=== PATIENT | female | born 1960 | race Caucasian/White ===

== ENCOUNTER 2018-07-09 13:46 | Inpatient (IN) | payer MEDICARE ==
[2018-07-09 14:33] LABS: #Basophils 0.1 thou/uL (0.0-0.2); #Eosinphils 0.4 thou/uL (0.0-0.7); #Lymphocytes 1.8 thou/uL (1.20-3.40); #Monocytes 0.6 thou/uL (0.11-0.59); #Neutrophils 5.6 thou/uL (1.40-6.50); %Basophils 0.8 % (0.0-1.0); %Eosinophils 4.5 % (0.0-10.0); %Lymphocytes 21.1 % (21.0-51.0); %Monocytes 6.6 % (0.0-10.0); Hemoglobin 11.5 g/dL (12.0-16.0); Mean Corpuscular HGB CONC 32.6 g/dL (32.0-36.0); Mean Corpuscular Hemoglobin 31.7 pg (27.0-31.0); Mean Corpuscular Volume 97.4 fL (78.0-98.0); Mean Platelet Volume 7.3 fL (7.4-10.4); Platelet Count 334 thou/uL (130-400); RBC Distribution Width 13.4 % (11.5-14.5); Red Blood Cell (RBC) Count 3.63 mill/uL (4.20-5.40); White Blood Cell (WBC) Count 8.4 thou/uL (4.8-10.8)
[2018-07-09 14:50] LABS: ALT (SGPT) 17 U/L (8-55); AST (SGOT) 18 U/L (5-34); Albumin 4.3 g/dL (3.5-5.0); Alkaline Phosphatase 77 U/L (40-150); Anion Gap 15 mmol/L (10-20); BUN (Urea Nitrogen) 33 mg/dL (9.8-20.1); Bilirubin, Total 0.3 mg/dL (0.2-1.2); Calc. Creatinine Clearance 0 mL/min (70-130); Calcium 10.7 mg/dL (7.8-10.44); Carbon Dioxide 27 mmol/L (22-29); Chloride 108 mmol/L (98-107); Estimated GFR-MDRD 45; Glucose 207 mg/dL (70-105); Potassium 5.4 mmol/L (3.5-5.1); Protein, Total 8.3 g/dL (6.0-8.3); Sodium 145 mmol/L (136-145)
[2018-07-09 15:02] LABS: Bilirubin Negative (Negative); Blood, Urine Negative (Negative); Clarity CLEAR (Clear); Glucose, Urine (Dipstick) 100 mg/dL (Negative); Leukocyte Negative (Negative); Nitrite Negative (Negative); Protein, Urine (Dipstick) 30 mg/dL (Neg-Trace); Specific Gravity, Urine 1.014 (1.002-1.036); Urobilinogen 0.2 mg/dL (0.2-1.0); pH, Urine 5.5 (5.0-9.0)
[2018-07-09 15:03] LABS: Bacteria/HPF None Seen HPF (None Seen); Hyaline Casts/LPF 0-3 HYALINE CAST LPF (0-3 Hyaline); Pathc Cast-AUWi Flag 0.43 (0-2.49); RBC/HPF 0-3 HPF (0-3); WBC/HPF 0-3 HPF (0-3)
--- NOTE | 2018-07-09 16:14 | RAD ---
THREE VIEWS RIGHT FOOT: Date: 07-09-18 History: Right foot pain with redness and swelling. Symptoms have been present for two weeks. Patient has diabetes. Comparison: None available. FINDINGS: There is mild deformity involving the proximal phalanx of the right small toe which is probably devel opmental in origin versus a remote healed fracture. There is no evidence of an acute fracture or disl ocation. There is a lucency present at the lateral aspect base of the distal phalanx of the great toe , but this appears corticated and may represent a more remote avulsion injury. Correlation with point tenderness in this region is suggested. The lisfranc joint is normally aligned. No definite acute fr acture or dislocation is seen. There is subcutaneous soft tissue swelling seen at the dorsal aspect o f the foot. Posterior and plantar calcaneal enthesophytes are seen. Vascular calcifications are seen at the level of the ankle and involving the foot. IMPRESSION: 1. No definite acute osseous abnormality is seen. There is no osseous destruction seen to suggest ost eomyelitis. If there is clinical concern for osteomyelitis, MRI right foot can be performed for furth er evaluation. 2. Findings which are most likely related to remote avulsion injury involving he medial aspect base o f the distal phalanx right great toe. However, correlation for point tenderness in this region is sug gested. 3. Subcutaneous soft tissue swelling dorsal aspect of the foot and ankle. POS: SELENA
[2018-07-09] MEDS ORDERED: Acetaminophen/Codeine 30-300mg Tablet ONE (16:30)
[2018-07-09] MEDS ORDERED: Piperacillin/Tazobactam 4.5 GM VIAL ONE (16:59)
[2018-07-09] MEDS ORDERED: Sodium Chloride 0.9% 100 ML ONE (17:00)
[2018-07-09] MEDS ORDERED: Acetaminophen 325 MG TAB PO PRN (17:16)
[2018-07-09] MEDS ORDERED: Dextrose 5% in Water 1,000 ML IV PRN ×2 (17:16→21:01)
[2018-07-09] MEDS ORDERED: Dextrose 50% Abboject 50 ML SYRINGE SLOW IVP PRN ×2 (17:16→21:02)
--- NOTE | 2018-07-09 17:16 | PDOC.FPRHP ---
- History of Present Illness Chief Complaint: R foot pain History of Present Illness: 57 yo type 2 diabetic with R foot pain for 2 weeks. Started after she believes she may have experienced trauma to foot. She describes a bedside lamp possibly falling on her foot in the middle of the night. Patient cannot recall any details aside from that but after that her right foot started swelling. She also endorses pain, erythema to the the point where it has been difficulty to ambulate. She saw her outpt PCP who recommended supportive care. Due to worsening symptoms she visited an urgent care where they gave her levaquin, she did not complete the dose. Due to no improvement she came to our ED. She denies fever, chills, or prior history of diabetic infections. She reports compliance with her insulin and controlled home sugars. ED Course: maddie Rowe, t3 - Allergies/Adverse Reactions Allergies Allergy/AdvReac Type Severity Reaction Status Date / Time No Known Drug Allergies Allergy Unverified 07/09/18 18:15 - History PMHx: DM2, HTN, HLD, CAD s/p stent x2, diabetic neuropathy & retinopathy PSHx: removal of glass shard from one of her two feet (pt cannot recall) FHx: DM2, cardiac disease Social: denies t/e/d - Review of Systems General: denies: fever/chills, weight/appetite/sleep changes Eyes: denies: eye pain, vision changes ENT: denies: nasal congestion, rhinorrhea Respiratory: denies: cough, congestion, shortness of breath Cardiovascular: denies: chest pain, palpitation Gastrointestinal: denies: nausea, vomiting, diarrhea, constipation, abdominal pain, GI bleeding Genitourinary: denies: incontinence, dysuria, polyuria Skin: denies: rashes, lesions Musculoskeletal: reports: pain, tenderness, stiffness, swelling (of R foot and swelling of left) Neurological: denies: numbness, seizure, weakness Psychological: denies: anxiety, depression - Vital signs BP: [137/87] HR: [82] RR: [16] Tmax: [98.3] Pox: [99]% on [RA] Wt: [73] - Physical Exam Constitutional: NAD HEENT: normocephalic and atraumatic, PERRLA, EOMI, conjunctiva clear, no scleral icterus Neck: supple, FROM Chest: no lesions Heart: RRR, normal S1/S2 Lungs: CTAB, no respiratory distress, no wheezing Abdomen: soft, non-tender Musculoskeletal: normal structure Neurological: no focal deficit, CN II-XII intact -Skin: LLE edema 1+ RLE edema 3+, erythema right foot up to lower anterior mae, faint pedal pulses. Skin breakdown with dried blood on plantar surface Psychiatric: normal mood and affect, good judgment and insight FMR H&P: Results - Labs Result Diagrams: 07/09/18 14:12 07/09/18 14:12 Lab results: WBC 8.4 thou/uL (4.8-10.8) 07/09/18 14:12 Hgb 11.5 g/dL (12.0-16.0) L 07/09/18 14:12 Hct 35.3 % (36.0-47.0) L 07/09/18 14:12 MCV 97.4 fL (78.0-98.0) 07/09/18 14:12 Plt Count 334 thou/uL (130-400) 07/09/18 14:12 Neutrophils % 67.0 % (42.0-75.0) 07/09/18 14:12 Sodium 145 mmol/L (136-145) 07/09/18 14:12 Potassium 5.4 mmol/L (3.5-5.1) H 07/09/18 14:12 Chloride 108 mmol/L (98-107) H 07/09/18 14:12 Carbon Dioxide 27 mmol/L (22-29) 07/09/18 14:12 BUN 33 mg/dL (9.8-20.1) H 07/09/18 14:12 Creatinine 1.23 mg/dL (0.6-1.1) H 07/09/18 14:12 Glucose 207 mg/dL (70-105) H 07/09/18 14:12 Lactic Acid 1.2 mmol/L (0.5-2.2) 07/09/18 14:12 Calcium 10.7 mg/dL (7.8-10.44) H 07/09/18 14:12 Total Bilirubin 0.3 mg/dL (0.2-1.2) 07/09/18 14:12 AST 18 U/L (5-34) 07/09/18 14:12 ALT 17 U/L (8-55) 07/09/18 14:12 Alkaline Phosphatase 77 U/L (40-150) 07/09/18 14:12 Serum Total Protein 8.3 g/dL (6.0-8.3) 07/09/18 14:12 Albumin 4.3 g/dL (3.5-5.0) 07/09/18 14:12 Urine Ketones Negative mg/dL (Negative) 07/09/18 14:30 Urine Blood Negative (Negative) 07/09/18 14:30 Urine Nitrite Negative (Negative) 07/09/18 14:30 Ur Leukocyte Esterase Negative (Negative) 07/09/18 14:30 Urine RBC 0-3 HPF (0-3) 07/09/18 14:30 Urine WBC 0-3 HPF (0-3) 07/09/18 14:30 Ur Squamous Epith Cells 4-6 HPF (0-3) H 07/09/18 14:30 Urine Bacteria None Seen HPF (None Seen) 07/09/18 14:30 - Radiology Interpretation Other Status: pending (foot xray: no osseous destruction, avulsion injury of R great toe) FMR H&P: A/P - Problem List (1) Cellulitis of right foot Current Visit: Yes Status: Acute Code(s): L03.115 - CELLULITIS OF RIGHT LOWER LIMB (2) Failure of outpatient treatment Current Visit: Yes Status: Acute Code(s): Z78.9 - OTHER SPECIFIED HEALTH STATUS (3) Hyperkalemia Current Visit: Yes Status: Acute Code(s): E87.5 - HYPERKALEMIA (4) ALIZA (acute kidney injury) Current Visit: Yes Status: Acute Code(s): N17.9 - ACUTE KIDNEY FAILURE, UNSPECIFIED (5) Insulin dependent diabetes mellitus Current Visit: Yes Status: Chronic Code(s): E11.9 - TYPE 2 DIABETES MELLITUS WITHOUT COMPLICATIONS; 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 RLE cellulitis with failed outpatient treatment of levaquin -Despite neg. xray there is clinical concern for osteo, will order MRI, get ESR as well -Empiric vanc & zosyn started -CrCl 59, will renally dose vanc 1.5g q24 -No sepsis criteria met, no double coverage for pseudomonas at this point -Admit to tele Hyperkalemia -5.4, will admit to tele -Start on home insulin, expect decrease -Stat EKG to assess for acute changes -Rpt BMP at 2100, if nml, move to medical ALIZA -Start on NS at 100cc, unknown cardiac history of CHF -Will check BNP -AM BMP IDDM2 -Resume home insulin -Moderate SS -ACHS Mild hypercalcemia -IVF, monitor with AM BMP HTN -resume home meds HLD -resume home meds CAD s/p stent x2 -resume home meds Diabetic neuropathy -resume home gabapentin dvt ppx: lovenox dispo: >2 midnights. Once med rec need to resume home meds. Discussed with Dr. White FMR H&P: Upper Level - Pertinent history 57 yo F who presents to ED with progressively worsening R foot pain for the last 2 weeks. She notes that a couple of weeks ago she knocked a lamp off her bed at the time she fell out of it. She thinks the lamp may have hit her on the foot. She saw her PCP who did not give her any treatment. A few days later, the pain and swelling were worsening and she was seen at outside ED where she says she was given levaquin, steroids, tylenol #3 and tramadol. She completed a 10 day course of levaquin with no improvement. She has otherwise been feeling well. She denies any visible weeping from the wound. She reports her BG has been well controlled recently. She has had trouble ambulating 2/2 pain. - Pertinent findings VSS Gen: awake, alert, oriented HEENT: atraumatic, normocephalic, symmetrical facial movements CV: RRR RESP: CTAB ABD: nontender EXT: RLE with erythema and edema, pulses difficult to auscultate but doppler- able, non-pitting edema, erythema margin marked mid-mae - Plan Date/Time: 07/09/18 1716 57 yo F with IDDM presents with RLE cellulitis that has failed OP therapy, hyperkalemia and ALIZA 1. RLE cellulitis that has failed to respond to OP Levaquin in IDDM - Concern for osteomyelitis - RLE xray negative but recommended MRI if clinical suspsicion exists - Vanc and zosyn started in ED, vanc trough tomorrow at 1430 - Margins marked - MRI and RLE doppler ordered - Tylenol for pain 2. Hyperkalemia - Will give kayexelate, repeat BMP in 4 hours - Monitor on tele, EKG pending 3. ALIZA - Unknown baseline - Will start gentle fluids, repeat BMP in a.m. 4. IDDM - On lantus and mealtime insulin - Check A1c - Home med rec when list brought in, moderate SSI 5. HTN - Home meds once available, PRN if indicated, WNL at this time 6. HLD - Home meds 7. CAD - s/p recent stent in February - Per radiology, OK for MRI if > 6 weeks since last stent - unknown EF so will give gentle fluids 8. Diabetic neuropathy/retinopathy - Will start home gapapentin I, Emily Segura MD, PGY-3, have evaluated this patient and agree with findings/ plan as outlined by legal intern resident. Pertinent changes/additions are listed here. Addendum - Attending - Attending Attestation Date/Time: 07/09/182048 I personally evaluated the patient and discussed the management with Dr. Infante. I agree with the History, Examination, Assessment and Plan documented above with any addition or exceptions noted below.
[2018-07-09] MEDS ORDERED: HumaLOG 300 UNITS/3 ML VIAL SC PRN (17:20)
[2018-07-09] MEDS ORDERED: Insulin Regular 300 UNITS/3 ML VIAL SC PRN (17:20)
[2018-07-09] MEDS ORDERED: Enoxaparin Sodium 40 MG/0.4 ML SYRINGE SC SCH (17:30)
[2018-07-09] MEDS ORDERED: Sodium Chloride 0.9% 1,000 ML IV SCH (18:30)
[2018-07-09] MEDS ORDERED: Vancomycin HCl 1.5 GM in Sodium Chloride 0.9% 250 ML 300 ML IVPB SCH (19:15)
[2018-07-09 19:45] LABS: Hemoglobin A1c 9.9 % (4.0-6.0)
[2018-07-09] MEDS ORDERED: Vancomycin HCl 500 MG in Sodium Chloride 0.9% 100 ML IVPB SCH (19:45)
--- NOTE | 2018-07-09 20:05 | ULT ---
RIGHT LOWER EXTREMITY VENOUS DOPPLER WITH SPECTRAL ANALYSIS AND COLOR FLOW EVALUATION: Date: 07-09-18 History: Right lower leg and foot redness and pain. FINDINGS: Grayscale, color flow, doppler evaluation, and spectral analysis of the right lower extremity venous structures is performed with 2D imaging. The right lower extremity common femoral, superficial femora l, popliteal, posterior tibial, proximal greater saphenous and profunda femoral veins are imaged. There is normal lumen compressibility, flow, and augmentation of the visualized deep venous structure s right lower extremity. IMPRESSION: No evidence of DVT involving the visualized deep venous structures right lower extremity. POS: AMPARO
[2018-07-09] MEDS: Acetaminophen 325 MG TAB PO PRN (21:06)
[2018-07-09] MEDS: Sodium Chloride 0.9% 1,000 ML IV SCH (21:07)
[2018-07-09] MEDS ORDERED: HYDROcodone/Acetaminophen 5/325 mg Tablet PO PRN (21:16)
[2018-07-09] MEDS ORDERED: Morphine 4 MG/ML VIAL SLOW IVP SCH (21:30)
[2018-07-09 22:08] LABS: Anion Gap 14 mmol/L (10-20); BUN (Urea Nitrogen) 28 mg/dL (9.8-20.1); Calc. Creatinine Clearance 0 mL/min (70-130); Calcium 9.7 mg/dL (7.8-10.44); Carbon Dioxide 25 mmol/L (22-29); Chloride 109 mmol/L (98-107); Estimated GFR-MDRD 45; Glucose 300 mg/dL (70-105); Potassium 4.7 mmol/L (3.5-5.1); Sodium 143 mmol/L (136-145)
[2018-07-09] MEDS: HumaLOG 300 UNITS/3 ML VIAL SC PRN (22:15)
[2018-07-09 22:45] VITALS: BMI 31.0
[2018-07-09] MEDS: Piperacillin/Tazobactam 3.375 GM in Sodium Chloride 0.9% 100 ML IVPB SCH (23:57)
[2018-07-09] MEDS ORDERED: Piperacillin/Tazobactam 3.375 GM in Sodium Chloride 0.9% 100 ML IVPB SCH (23:59)
[2018-07-10] MEDS ORDERED: Vancomycin HCl 1 GM in Sodium Chloride 0.9% 250 ML 250 ML IVPB SCH (01:00)
[2018-07-10] MEDS: Acetaminophen 325 MG TAB PO PRN ×2 (01:04→08:52)
[2018-07-10] MEDS: HumaLOG 300 UNITS/3 ML VIAL SC PRN ×4 (05:36→20:09)
[2018-07-10] MEDS: Piperacillin/Tazobactam 3.375 GM in Sodium Chloride 0.9% 100 ML IVPB SCH ×4 (05:55→23:04)
[2018-07-10 06:04] LABS: #Basophils 0.1 thou/uL (0.0-0.2); #Eosinphils 0.3 thou/uL (0.0-0.7); #Monocytes 0.6 thou/uL (0.11-0.59); #Neutrophils 4.1 thou/uL (1.40-6.50); %Eosinophils 4.5 % (0.0-10.0); %Lymphocytes 28.2 % (21.0-51.0); %Monocytes 8.3 % (0.0-10.0); %Neutrophils 58.1 % (42.0-75.0); Hemoglobin 10.1 g/dL (12.0-16.0); Mean Corpuscular HGB CONC 32.6 g/dL (32.0-36.0); Mean Corpuscular Hemoglobin 31.8 pg (27.0-31.0); Mean Corpuscular Volume 97.7 fL (78.0-98.0); Mean Platelet Volume 7.3 fL (7.4-10.4); Platelet Count 262 thou/uL (130-400); RBC Distribution Width 13.2 % (11.5-14.5); Red Blood Cell (RBC) Count 3.18 mill/uL (4.20-5.40); White Blood Cell (WBC) Count 7.1 thou/uL (4.8-10.8)
--- NOTE | 2018-07-10 06:41 | PDOC.FM ---
- Subjective Subjective: Mirna Lanza seen at bedside this morning. She continues to complain of pain in the R foot. Erythema appears to be mildly improving. She denies fever, chills, chest pain, dyspnea. She states that she has not gotten her gabapentin , which she takes at home. Also states that she requested morphine last night but was unable to get it because she refused it in the ER. States that the norco did not touch the pain. She is scheduled for MRI today. - Objective MAR Reviewed: Yes Vital Signs & Weight: Vital Signs (12 hours) Temp Pulse Resp BP BP Pulse Ox 07/10/18 03:40 98.3 F 82 18 165/97 H 95 07/10/18 01:19 94 L 07/10/18 00:17 98.4 F 82 18 158/96 H 94 L 07/09/18 19:10 98.6 F 88 16 142/72 H 97 Weight Weight 72.03 kg I&O: 07/08/18 07/09/18 07/10/18 06:59 06:59 06:59 Intake Total 1000 Balance 1000 Result Diagrams: 07/10/18 05:30 07/09/18 21:47 Phys Exam - Physical Examination Constitutional: NAD HEENT: moist MMs, sclera anicteric Neck: no JVD, supple, full ROM Respiratory: no wheezing, no rales, no rhonchi, clear to auscultation bilateral Cardiovascular: RRR, no significant murmur Gastrointestinal: soft, non-tender Musculoskeletal: no edema, pulses present Neurological: non-focal, normal sensation, moves all 4 limbs Psychiatric: normal affect, A&O x 3 Deviation from normal: Erythema and swelling to R foot Dx/Plan (1) Cellulitis of right foot Code(s): L03.115 - CELLULITIS OF RIGHT LOWER LIMB Status: Acute (2) ALIZA (acute kidney injury) Code(s): N17.9 - ACUTE KIDNEY FAILURE, UNSPECIFIED Status: Acute (3) Hyperkalemia Code(s): E87.5 - HYPERKALEMIA Status: Resolved (4) Diabetic neuropathy Code(s): E11.40 - TYPE 2 DIABETES MELLITUS WITH DIABETIC NEUROPATHY, UNSP Status: Chronic (5) Hyperlipidemia Code(s): E78.5 - HYPERLIPIDEMIA, UNSPECIFIED Status: Chronic (6) Hypertension Code(s): I10 - ESSENTIAL (PRIMARY) HYPERTENSION Status: Chronic (7) Insulin dependent diabetes mellitus Code(s): E11.9 - TYPE 2 DIABETES MELLITUS WITHOUT COMPLICATIONS; 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 Hyperkalemia-resolved - Will continue to monitor - Monitor on tele, consider transitioning to medical today 3. ALIZA - Unknown baseline - Repeat BMP this morning showed no change in eGFR - Possible that she has CKD 4. IDDM - On lantus and mealtime insulin - HgA1c is 9.9 - Mod SSI 5. HTN - Will restart home meds today 6. HLD - Home meds 7. CAD - s/p recent stent in February - Per radiology, OK for MRI if > 6 weeks since last stent - unknown EF so will give gentle fluids 8. Diabetic neuropathy/retinopathy - Will start home gapapentin Addendum - Attending - Attending Attestation Date/Time: 07/10/18 1321 I personally evaluated the patient and discussed the management with Dr. Johnson. I agree with the History, Examination, Assessment and Plan documented above with any addition or exceptions noted below. The patient's right foot is erythematous and tender though the redness is within the margins that were drawn yesterday. Continue broad spectrum IV antibiotics. MRI today to look for osteo. Consider CRP.
[2018-07-10] MEDS ORDERED: Nitroglycerin 0.4 MG TAB (25 Tab Bottle) SL PRN (08:48)
[2018-07-10] MEDS ORDERED: GABAPENTIN 500 MG PO SCH (09:00)
[2018-07-10] MEDS ORDERED: Gabapentin 400 MG CAP PO SCH (09:00)
[2018-07-10] MEDS: Sodium Chloride 0.9% 1,000 ML IV SCH ×2 (09:36→17:45)
[2018-07-10] MEDS: Lisinopril 20 MG TAB PO SCH (09:37)
[2018-07-10] MEDS: Carvedilol 3.125 MG TAB PO SCH (09:37)
[2018-07-10] MEDS: Clopidogrel Bisulfate 75 MG TAB PO SCH (09:37)
[2018-07-10] MEDS: Aspirin 81 mg Enteric Coated Tablet PO SCH (09:37)
[2018-07-10] MEDS: Insulin Glargine 35 UNITS in Pre-Filled Syringe 1 EACH SC SCH ×2 (11:30→20:09)
[2018-07-10] MEDS ORDERED: Lorazepam 2 MG/ML VIAL SLOW IVP SCH ×2 (11:45→14:30)
[2018-07-10] MEDS ORDERED: Lorazepam 1 MG TAB PO SCH ×3 (11:51→16:30)
[2018-07-10] MEDS ORDERED: Morphine 4 MG/ML VIAL SLOW IVP PRN (12:00)
[2018-07-10] MEDS: Acetaminophen 325 MG TAB PO SCH ×3 (12:41→23:06)
[2018-07-10] MEDS ORDERED: traMADol HCl 50 MG TAB PO PRN (16:21)
[2018-07-10] MEDS: Gabapentin 400 MG CAP PO SCH (17:45)
[2018-07-10] MEDS: Vancomycin HCl 1.5 GM in Sodium Chloride 0.9% 250 ML 300 ML IVPB SCH (18:34)
[2018-07-10] MEDS: traMADol HCl 50 MG TAB PO PRN (23:07)
[2018-07-11] MEDS: Sodium Chloride 0.9% 1,000 ML IV SCH ×2 (04:05→13:16)
[2018-07-11] MEDS: Piperacillin/Tazobactam 3.375 GM in Sodium Chloride 0.9% 100 ML IVPB SCH ×4 (05:22→23:01)
[2018-07-11] MEDS: Acetaminophen 325 MG TAB PO SCH ×4 (05:24→23:01)
[2018-07-11 06:14] LABS: #Basophils 0.1 thou/uL (0.0-0.2); #Eosinphils 0.3 thou/uL (0.0-0.7); #Monocytes 0.5 thou/uL (0.11-0.59); #Neutrophils 4.1 thou/uL (1.40-6.50); %Lymphocytes 28.9 % (21.0-51.0); %Monocytes 7.2 % (0.0-10.0); %Neutrophils 58.8 % (42.0-75.0); Hemoglobin 8.9 g/dL (12.0-16.0); Mean Corpuscular HGB CONC 32.4 g/dL (32.0-36.0); Mean Corpuscular Hemoglobin 31.9 pg (27.0-31.0); Mean Corpuscular Volume 98.4 fL (78.0-98.0); Mean Platelet Volume 7.2 fL (7.4-10.4); Platelet Count 247 thou/uL (130-400); RBC Distribution Width 13.1 % (11.5-14.5); Red Blood Cell (RBC) Count 2.78 mill/uL (4.20-5.40)
[2018-07-11 06:39] LABS: Anion Gap 9 mmol/L (10-20); BUN (Urea Nitrogen) 16 mg/dL (9.8-20.1); Calc. Creatinine Clearance 65 mL/min (70-130); Calcium 8.6 mg/dL (7.8-10.44); Carbon Dioxide 28 mmol/L (22-29); Chloride 112 mmol/L (98-107); Estimated GFR-MDRD 51; Glucose 84 mg/dL (70-105); Sodium 145 mmol/L (136-145)
--- NOTE | 2018-07-11 06:50 | PDOC.FM ---
- Subjective Subjective: Mirna Lanza seen at bedside this morning. She was unable to get her MRI yesterday because she could not keep still. MRI rescheduled for this morning. Ativan is ordered this morning for the patient for agitation. Swelling and redness has improved and patient states that pain is well controlled. There were no acute events overnight. She denies fever, chills, chest pain, dyspnea, n/v. - Objective MAR Reviewed: Yes Vital Signs & Weight: Vital Signs (12 hours) Temp Pulse Resp BP BP BP Pulse Ox 07/11/18 04:49 93 L 07/11/18 04:41 98.4 F 75 20 143/88 H 93 L 07/10/18 23:56 98.2 F 85 18 151/81 H 95 07/10/18 21:29 94 L 07/10/18 20:00 98.4 F 85 16 154/80 H 94 L Weight Admit Weight 72.03 kg Weight 72.03 kg I&O: 07/09/18 07/10/18 07/11/18 06:59 06:59 06:59 Intake Total 1000 1900 Balance 1000 1900 Result Diagrams: 07/11/18 05:11 07/11/18 05:11 Phys Exam - Physical Examination Constitutional: NAD HEENT: moist MMs, sclera anicteric Neck: supple, full ROM Respiratory: no wheezing, no rales, no rhonchi, clear to auscultation bilateral Cardiovascular: RRR, no significant murmur Gastrointestinal: soft, non-tender Musculoskeletal: pulses present Neurological: non-focal, normal sensation, moves all 4 limbs Psychiatric: normal affect, A&O x 3 Deviation from normal: erythema and edema to right foot, improved from yesterday Dx/Plan (1) Cellulitis of right foot Code(s): L03.115 - CELLULITIS OF RIGHT LOWER LIMB Status: Acute (2) ALIZA (acute kidney injury) Code(s): N17.9 - ACUTE KIDNEY FAILURE, UNSPECIFIED Status: Acute (3) Hyperkalemia Code(s): E87.5 - HYPERKALEMIA Status: Resolved (4) Diabetic neuropathy Code(s): E11.40 - TYPE 2 DIABETES MELLITUS WITH DIABETIC NEUROPATHY, UNSP Status: Chronic (5) Hyperlipidemia Code(s): E78.5 - HYPERLIPIDEMIA, UNSPECIFIED Status: Chronic (6) Hypertension Code(s): I10 - ESSENTIAL (PRIMARY) HYPERTENSION Status: Chronic (7) Insulin dependent diabetes mellitus Code(s): E11.9 - TYPE 2 DIABETES MELLITUS WITHOUT COMPLICATIONS; 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 Hyperkalemia-resolved - Will continue to monitor - Monitor on tele, consider transitioning to medical today 3. ALIZA - Unknown baseline - Repeat BMP this morning showed no change in eGFR - Improvement in Cr and eGFR today 4. IDDM - On lantus and mealtime insulin - HgA1c is 9.9 - Mod SSI 5. HTN - Will restart home meds today 6. HLD - Home meds 7. CAD - s/p recent stent in February - Per radiology, OK for MRI if > 6 weeks since last stent - unknown EF so will give gentle fluids 8. Diabetic neuropathy/retinopathy - Will start home gapapentin Addendum - Attending - Attending Attestation Date/Time: 07/11/18 7294 I personally evaluated the patient and discussed the management with Dr. Johnson. I agree with the History, Examination, Assessment and Plan documented above with any addition or exceptions noted below. Pt's erythema is a little improved. Waiting on MRI read this morning. Continue IV antibiotics today.
[2018-07-11] MEDS ORDERED: Lorazepam 2 MG/ML VIAL SLOW IVP SCH (08:15)
[2018-07-11] MEDS ORDERED: Lorazepam 1 MG TAB PO SCH (08:30)
[2018-07-11] MEDS: Clopidogrel Bisulfate 75 MG TAB PO SCH (09:53)
[2018-07-11] MEDS: Gabapentin 400 MG CAP PO SCH ×2 (09:53→17:47)
[2018-07-11] MEDS: Aspirin 81 mg Enteric Coated Tablet PO SCH (09:53)
[2018-07-11] MEDS: Carvedilol 3.125 MG TAB PO SCH (09:53)
[2018-07-11] MEDS: Lisinopril 20 MG TAB PO SCH (09:53)
[2018-07-11] MEDS: Insulin Glargine 35 UNITS in Pre-Filled Syringe 1 EACH SC SCH ×2 (09:54→20:30)
--- NOTE | 2018-07-11 10:29 | MRI ---
MRI RIGHT FOOT NONCONTRAST: HISTORY: Pain and swelling. Evaluate for osteomyelitis. FINDINGS: Bone marrow signal throughout the tarsal bones, metatarsals, and phalanges is within normal limits. Regional muscular structures intact. No focal fluid collections. No significant joint fluid. IMPRESSION: No MRI evidence of inflammation or osteomyelitis of the right foot. POS: SELENA
[2018-07-11] MEDS: HumaLOG 300 UNITS/3 ML VIAL SC PRN ×3 (11:45→21:48)
[2018-07-11] MEDS ORDERED: Gadobenate Dimeglumine 529 MG/1 ML (20ML VIAL) ONE (16:21)
[2018-07-11 17:47] LABS: Vancomycin, Trough 14.4 ug/mL
[2018-07-11] MEDS: Vancomycin HCl 1.5 GM in Sodium Chloride 0.9% 250 ML 300 ML IVPB SCH (18:43)
[2018-07-11] MEDS: traMADol HCl 50 MG TAB PO PRN (19:47)
[2018-07-11] MEDS ORDERED: Ondansetron ODT 4 MG TAB PO PRN (21:29)
[2018-07-11] MEDS ORDERED: Ondansetron ODT 8 MG TAB SL PRN (21:29)
[2018-07-11] MEDS: Labetalol HCl 100 MG/20 ML VIAL SLOW IVP PRN (21:59)
[2018-07-12] MEDS: traMADol HCl 50 MG TAB PO PRN ×3 (01:02→21:47)
[2018-07-12] MEDS: Sodium Chloride 0.9% 1,000 ML IV SCH ×3 (01:16→23:06)
[2018-07-12] MEDS: Piperacillin/Tazobactam 3.375 GM in Sodium Chloride 0.9% 100 ML IVPB SCH (05:06)
[2018-07-12] MEDS: HumaLOG 300 UNITS/3 ML VIAL SC PRN ×4 (05:54→21:44)
[2018-07-12] MEDS: Acetaminophen 325 MG TAB PO SCH ×3 (05:55→17:41)
[2018-07-12 06:02] LABS: #Eosinphils 0.4 thou/uL (0.0-0.7); #Lymphocytes 1.9 thou/uL (1.20-3.40); #Monocytes 0.5 thou/uL (0.11-0.59); #Neutrophils 6.1 thou/uL (1.40-6.50); %Basophils 0.4 % (0.0-1.0); %Eosinophils 4.6 % (0.0-10.0); %Lymphocytes 21.6 % (21.0-51.0); %Monocytes 5.8 % (0.0-10.0); %Neutrophils 67.5 % (42.0-75.0); Hemoglobin 9.1 g/dL (12.0-16.0); Mean Corpuscular HGB CONC 32.3 g/dL (32.0-36.0); Mean Corpuscular Hemoglobin 31.7 pg (27.0-31.0); Mean Corpuscular Volume 98.1 fL (78.0-98.0); Platelet Count 276 thou/uL (130-400); RBC Distribution Width 13.2 % (11.5-14.5); Red Blood Cell (RBC) Count 2.88 mill/uL (4.20-5.40)
--- NOTE | 2018-07-12 06:53 | PDOC.FM ---
- Subjective Subjective: Mirna Lanza seen at bedside this morning. Her cellulitis is improving, the erythema on her right foot is markedly improved. Wound care came to see patient yesterday. Recommended outpatient follow up with podiatry and provided wound care education to patient and her mother. Last night, patient had episode of elevated blood pressures, highest was 196/119. Given IV prn antihypertensives and pain medications and BP improved. BP is wnl this morning. Patient has no other complains. Denies fever, chills, chest pain, dyspnea, n/v. - Objective MAR Reviewed: Yes Vital Signs & Weight: Vital Signs (12 hours) Temp Pulse Resp BP BP BP Pulse Ox 07/12/18 05:12 158/92 H 07/12/18 03:53 98.5 F 88 18 162/94 H 95 07/12/18 00:00 98.1 F 92 18 162/89 H 93 L 07/11/18 22:49 183/98 H 07/11/18 22:10 196/119 H 07/11/18 21:59 96 196/119 H 07/11/18 21:38 96 07/11/18 21:29 172/96 H 07/11/18 20:20 169/103 H 07/11/18 20:01 98.4 F 95 20 190/113 H 96 Weight Admit Weight 72.03 kg Weight 72.03 kg I&O: 07/10/18 07/11/18 07/12/18 06:59 06:59 06:59 Intake Total 1000 1900 1330 Balance 1000 1900 1330 Result Diagrams: 07/12/18 05:34 07/12/18 06:54 Radiology Reviewed by me: Yes (MRI foot shows no osteomyelitis ) Phys Exam - Physical Examination Constitutional: NAD HEENT: moist MMs, sclera anicteric Neck: supple, full ROM Respiratory: no wheezing, no rales, no rhonchi, clear to auscultation bilateral Cardiovascular: RRR, no significant murmur Gastrointestinal: soft, non-tender Musculoskeletal: no edema, pulses present Neurological: non-focal, moves all 4 limbs Psychiatric: A&O x 3 Deviation from normal: interval improvement of right foot erythema, wound dressing intact Dx/Plan (1) Cellulitis of right foot Code(s): L03.115 - CELLULITIS OF RIGHT LOWER LIMB Status: Acute (2) ALIZA (acute kidney injury) Code(s): N17.9 - ACUTE KIDNEY FAILURE, UNSPECIFIED Status: Acute (3) Hyperkalemia Code(s): E87.5 - HYPERKALEMIA Status: Resolved (4) Diabetic neuropathy Code(s): E11.40 - TYPE 2 DIABETES MELLITUS WITH DIABETIC NEUROPATHY, UNSP Status: Chronic (5) Hyperlipidemia Code(s): E78.5 - HYPERLIPIDEMIA, UNSPECIFIED Status: Chronic (6) Hypertension Code(s): I10 - ESSENTIAL (PRIMARY) HYPERTENSION Status: Chronic (7) Insulin dependent diabetes mellitus Code(s): E11.9 - TYPE 2 DIABETES MELLITUS WITHOUT COMPLICATIONS; 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 Hyperkalemia-resolved - Will continue to monitor - Monitor on tele, consider transitioning to medical today 3. ALIZA- improving - Unknown baseline - Repeat BMP this morning 4. IDDM - On lantus and mealtime insulin - HgA1c is 9.9 - Mod SSI 5. HTN - Hypertensive urgency overnight, responded to prn antihypertensive and pain medication - Increasing home lisinopril to 40 mg po daily, will continue to monitor 6. HLD - Home meds 7. CAD - s/p recent stent in February - Per radiology, OK for MRI if > 6 weeks since last stent - unknown EF so will give gentle fluids 8. Diabetic neuropathy/retinopathy - Will start home gapapentin Addendum - Attending - Attending Attestation Date/Time: 07/12/18 9748 I personally evaluated the patient and discussed the management with Dr. Johnson. I agree with the History, Examination, Assessment and Plan documented above with any addition or exceptions noted below. MRI negative for osteomyeltitis. Will swap to oral clindamycin today and anticipate d/c tomorrow.
[2018-07-12] MEDS: Gabapentin 400 MG CAP PO SCH ×2 (08:55→17:41)
[2018-07-12 09:08] LABS: Anion Gap 10 mmol/L (10-20); BUN (Urea Nitrogen) 13 mg/dL (9.8-20.1); Calc. Creatinine Clearance 65 mL/min (70-130); Calcium 8.6 mg/dL (7.8-10.44); Carbon Dioxide 29 mmol/L (22-29); Chloride 108 mmol/L (98-107); Estimated GFR-MDRD 51; Glucose 151 mg/dL (70-105); Potassium 3.9 mmol/L (3.5-5.1); Sodium 143 mmol/L (136-145)
[2018-07-12] MEDS: Clopidogrel Bisulfate 75 MG TAB PO SCH (09:45)
[2018-07-12] MEDS: Carvedilol 3.125 MG TAB PO SCH (09:45)
[2018-07-12] MEDS: Aspirin 81 mg Enteric Coated Tablet PO SCH (09:45)
[2018-07-12] MEDS: Lisinopril 20 MG TAB PO SCH (09:46)
[2018-07-12] MEDS: Insulin Glargine 35 UNITS in Pre-Filled Syringe 1 EACH SC SCH ×2 (09:47→21:44)
[2018-07-12] MEDS: Clindamycin 150 MG CAP PO SCH ×2 (11:39→17:41)
[2018-07-13] MEDS: Labetalol HCl 100 MG/20 ML VIAL SLOW IVP PRN (00:34)
[2018-07-13] MEDS: Acetaminophen 325 MG TAB PO SCH ×3 (00:38→11:59)
[2018-07-13] MEDS: Clindamycin 150 MG CAP PO SCH ×3 (00:38→12:00)
[2018-07-13] MEDS: Sodium Chloride 0.9% 1,000 ML IV SCH ×2 (05:46→14:14)
[2018-07-13] MEDS: HumaLOG 300 UNITS/3 ML VIAL SC PRN ×2 (05:59→12:00)
[2018-07-13 06:19] LABS: #Basophils 0.1 thou/uL (0.0-0.2); #Eosinphils 0.5 thou/uL (0.0-0.7); #Lymphocytes 1.9 thou/uL (1.20-3.40); #Monocytes 0.5 thou/uL (0.11-0.59); #Neutrophils 5.8 thou/uL (1.40-6.50); %Basophils 0.7 % (0.0-1.0); %Eosinophils 5.8 % (0.0-10.0); %Neutrophils 65.5 % (42.0-75.0); Hemoglobin 9.4 g/dL (12.0-16.0); Mean Corpuscular HGB CONC 31.8 g/dL (32.0-36.0); Mean Corpuscular Hemoglobin 31.4 pg (27.0-31.0); Mean Platelet Volume 6.9 fL (7.4-10.4); Platelet Count 287 thou/uL (130-400); RBC Distribution Width 13.4 % (11.5-14.5); Red Blood Cell (RBC) Count 2.99 mill/uL (4.20-5.40); White Blood Cell (WBC) Count 8.8 thou/uL (4.8-10.8)
--- NOTE | 2018-07-13 06:52 | PDOC.FM ---
- Subjective Subjective: Mirna Lanza seen at bedside this morning, has no complaints and there were no acute events overnight per nursing staff. Wound care has continued to see patient. Continues to have improvement in right foot, swelling and erythema have decreased. Denies fever, chills, chest pain. Every night since admission , she has had oxygen desaturations. I have recommended that she follow up with PCP to get referral for sleep study. - Objective MAR Reviewed: Yes Vital Signs & Weight: Vital Signs (12 hours) Temp Pulse Resp BP Pulse Ox 07/13/18 04:31 98.2 F 80 20 124/71 95 07/13/18 00:34 83 07/13/18 00:00 96 07/12/18 23:59 98.3 F 83 22 H 169/98 H 94 L 07/12/18 20:30 88 L 07/12/18 20:00 98.1 F 79 24 H 166/76 H 95 Weight Admit Weight 72.03 kg Weight 72.03 kg I&O: 07/11/18 07/12/18 07/13/18 06:59 06:59 06:59 Intake Total 1900 1330 1590 Balance 1900 1330 1590 Result Diagrams: 07/13/18 06:05 07/13/18 06:01 Phys Exam - Physical Examination Constitutional: NAD HEENT: moist MMs, sclera anicteric Neck: no JVD, supple, full ROM Respiratory: no wheezing, no rales, no rhonchi, clear to auscultation bilateral Cardiovascular: RRR, no significant murmur Gastrointestinal: soft, non-tender, no distention Musculoskeletal: no edema, pulses present Neurological: non-focal, normal sensation, moves all 4 limbs Psychiatric: normal affect, A&O x 3 Deviation from normal: improving erythema to right foot Dx/Plan (1) Cellulitis of right foot Code(s): L03.115 - CELLULITIS OF RIGHT LOWER LIMB Status: Acute (2) ALIZA (acute kidney injury) Code(s): N17.9 - ACUTE KIDNEY FAILURE, UNSPECIFIED Status: Acute (3) Hyperkalemia Code(s): E87.5 - HYPERKALEMIA Status: Resolved (4) Diabetic neuropathy Code(s): E11.40 - TYPE 2 DIABETES MELLITUS WITH DIABETIC NEUROPATHY, UNSP Status: Chronic (5) Hyperlipidemia Code(s): E78.5 - HYPERLIPIDEMIA, UNSPECIFIED Status: Chronic (6) Hypertension Code(s): I10 - ESSENTIAL (PRIMARY) HYPERTENSION Status: Chronic (7) Insulin dependent diabetes mellitus Code(s): E11.9 - TYPE 2 DIABETES MELLITUS WITHOUT COMPLICATIONS; Z79.4 - EMERGENCY MEDICAL TECHNICIAN BASIC (CURRENT) USE OF INSULIN Status: Chronic - Plan Plan: 1) Right LE cellulitis-failed outpatient therapy - Concern for osteomyelitis, MRI ordered - RLE xray negative, MRI negative for osteomyelitis - Vanc and zosyn started in ED and continued - Margins marked in ED, will continue to monitor progression - R LE US negative for DVT - Tylenol for pain, Morphine for breakthrough - cellulitis has shown marked improvement, transition to po clinda and IV abx d/ c'd on 07/12 2. Hyperkalemia-resolved - Will continue to monitor - Monitor on tele, consider transitioning to medical today 3. ALIZA- improving - Unknown baseline - Repeat BMP this morning 4. IDDM - On lantus and mealtime insulin - HgA1c is 9.9 - Mod SSI 5. HTN - Hypertensive urgency on 07/11 at night, responded to prn antihypertensive and pain medication - Increasing home lisinopril to 40 mg po daily, will continue to monitor - no documented hypertensive urgency overnight last night 6. HLD - Home meds 7. CAD - s/p recent stent in February - Per radiology, OK for MRI if > 6 weeks since last stent - unknown EF so will give gentle fluids 8. Diabetic neuropathy/retinopathy - Will start home gapapentin Addendum - Attending - Attending Attestation Date/Time: 07/13/18 [id number] I personally evaluated the patient and discussed the management with Dr. Johnson. I agree with the History, Examination, Assessment and Plan documented above with any addition or exceptions noted below. Pt has decided to go home with home health. She will get a walker. Pt is doing well with oral clindamycin other than diarrhea as a side effect. Adding probiotics and immodium as needed.
[2018-07-13 07:06] LABS: Anion Gap 12 mmol/L (10-20); BUN (Urea Nitrogen) 18 mg/dL (9.8-20.1); Calc. Creatinine Clearance 62 mL/min (70-130); Calcium 8.7 mg/dL (7.8-10.44); Carbon Dioxide 25 mmol/L (22-29); Chloride 107 mmol/L (98-107); Estimated GFR-MDRD 49; Glucose 183 mg/dL (70-105); Potassium 4.2 mmol/L (3.5-5.1); Sodium 140 mmol/L (136-145)
[2018-07-13] MEDS ORDERED: Lactinex Tablet PO SCH (09:00)
[2018-07-13] MEDS ORDERED: Saccharomyces boulardii 250 MG CAP PO SCH ×2 (09:30→10:00)
[2018-07-13] MEDS: Aspirin 81 mg Enteric Coated Tablet PO SCH (09:56)
[2018-07-13] MEDS: Carvedilol 3.125 MG TAB PO SCH (09:56)
[2018-07-13] MEDS: Gabapentin 400 MG CAP PO SCH (09:56)
[2018-07-13] MEDS: Clopidogrel Bisulfate 75 MG TAB PO SCH (09:56)
[2018-07-13] MEDS: Lisinopril 20 MG TAB PO SCH (09:57)
[2018-07-13] MEDS: Insulin Glargine 35 UNITS in Pre-Filled Syringe 1 EACH SC SCH (09:58)
[2018-07-13] MEDS ORDERED: Loperamide HCl 2 MG CAP PO SCH ×2 (10:45→12:30)
[2018-07-13 11:57] VITALS: BP 166/101; TEMP 98.5
[2018-07-13] MEDS ORDERED: Loperamide HCl 2 MG CAP PO PRN (12:18)
[2018-07-13] MEDS: traMADol HCl 50 MG TAB PO PRN (14:03)
--- NOTE | 2018-07-14 04:08 | DIS ---
DATE OF ADMISSION: 07/09/2018 DATE OF DISCHARGE: 07/13/2018 RESIDENT: John Johnson MD DISCHARGE ATTENDING: Paulette Tate MD CONSULTS: 1. Case Management. 2. PT. 3. Wound Care. PROCEDURES: 1. Foot x-ray on 06/12/2018, impression; no definite acute osseous abnormality seen. There is no osseous destruction to suggest osteomyelitis, but there is clinical concern for osteomyelitis. MRI of the right foot can be performed for further evaluation. Findings which are most likely related to remote avulsion injury involving the medial aspect base of the distal pharynx of the right great toe, subcutaneous soft tissue swelling on dorsal aspect of the foot and ankle. 2. Right lower extremity venous doppler on 07/09/2018, impression; no evidence of DVT involving the visualized deep venous structures of the right lower extremity. 3. MRI of the right foot on 07/11/2018, impression; no MRI evidence of inflammation or osteomyelitis on the right foot. PRIMARY DIAGNOSES: 1. Cellulitis of the right foot. 2. Hyperkalemia. 3. Acute kidney injury. SECONDARY DIAGNOSES: 1. Insulin-dependent diabetes mellitus. 2. Hypertension. 3. Hyperlipidemia. 4. Diabetic neuropathy. DISCHARGE MEDICATIONS: Resume home medications including; 1. Pantoprazole 40 mg p.o. daily. 2. Nitroglycerin 0.4 mg sublingual q.5 minutes p.r.n. 3. Metformin 1000 mg p.o. b.i.d. with meals. 4. Isosorbide mononitrate 30 mg p.o. daily. 5. Plavix 75 mg p.o. daily. 6. Aspirin 81 mg p.o. daily. 7. Tramadol 50 mg tablets 1 to 2 tablets p.o. q.6h p.r.n. 8. Lantus 35 units subcu b.i.d. 9. Gabapentin 800 mg p.o. b.i.d. 10. Carvedilol 3.125 mg p.o. daily. New home medications include; 1. Clindamycin 300 mg p.o. q.6h for 7 days. 2. Lactobacillus 1 tablet p.o. daily. 3. Florastor 250 mg p.o. daily. 4. Imodium 2 mg p.o. p.r.n. 5. Increasing home lisinopril from 20 mg to 40 mg p.o. daily. HISTORY OF PRESENT ILLNESS/HOSPITAL COURSE: Mirna Lanza is a 57-year-old female with past medical history of type 2 diabetes, hypertension, hyperlipidemia; coronary artery disease, status post stent x2; and diabetic nephropathy and retinopathy, who presented with right foot pain for 2 weeks. She believes she may have experience trauma to the foot, possibly a bedside lamp fell on her foot in the middle of night. She cannot recall any details of the events aside from that, but she has had progressive pain, swelling, and erythema to the point, where it has been difficult for her to ambulate. She saw her PCP who recommended sought of care and because of worsening symptoms, she visited an urgent care where they gave her Levaquin, she did not complete the dose and decided to come to the ED for progressive symptoms. She denies any fever, chills, history of diabetic foot infections. She reports compliance with her insulin. In the ED, she was given vancomycin and zosyn. Vancomycin and zosyn were continued from day of admission until 07/12/2018, at that point she was switched to oral clindamycin. She had a negative MRI showing no signs of osteomyelitis. During this admission, she also had hyperkalemia and acute kidney injury, these both resolved with fluids. The patient did experience some diarrhea with initiation of clindamycin. Probiotics were started and the patient was provided loperamide as well. The patient was cleared for discharge home on 07/13/2018 with instructions to follow up with primary care provider to evaluate for resolution of cellulitis. The patient's hospital stay was otherwise uncomplicated. The patient had difficulty ambulating during this hospital stay secondary to pain. Physical Therapy was consulted and worked with the patient, and recommended physical therapy as outpatient as well as transfer and gait training. DISPOSITION: Stable. DISCHARGE INSTRUCTIONS: 1. Location: Home with home health and physical therapy. 2. Diet: Diabetic diet. 3. Activity: As tolerated. 4. Followup: Follow up with primary care provider within 1 week. Job ID: [id number]
[2018-07-14] MEDS ORDERED: Saccharomyces boulardii 250 MG CAP PO SCH (09:00)
== END 2018-07-13 15:35 | disposition home health service (06) | DRG 603 ==
LOC: ERS 13:46 → 2NO 17:11 → ERS 18:57 → SURG A 07-10 00:46
PROVIDERS: ADMIT Family Medicine; ATTEND Family Medicine
DX: L03.115 Cellulitis of right lower limb (principal); N17.9 Acute kidney failure, unspecified; E11.42 Type 2 diabetes mellitus with diabetic polyneuropathy; E11.319 Type 2 diabetes mellitus with unspecified diabetic retinopathy without macular edema; I10 Essential (primary) hypertension; E78.5 Hyperlipidemia, unspecified; I25.10 Atherosclerotic heart disease of native coronary artery without angina pectoris; E87.5 Hyperkalemia; E83.52 Hypercalcemia; Z79.4 Long term (current) use of insulin; Z95.5 Presence of coronary angioplasty implant and graft; Z83.3 Family history of diabetes mellitus
CPT/HCPCS: 36415; 36416; 80048; 80053; 80202; 81003; 81015; 83036; 83605; 83880; 85025; 85652; 87040; 93005; 93010; 96365; 96367; A9579; J1650; J2270; J2543; J3370; J7050